=== PATIENT | male | born 1955 | race American Indian/Alaskan Native ===

== ENCOUNTER 2020-05-22 09:44 | Emergency (ER) | payer MEDICARE ==
--- NOTE | 2020-05-22 10:34 | Emergency Department Report ---
ED General Adult HPI - General Chief complaint: Extremity Injury, Lower Stated complaint: RT WRIST LEFT KNEE PAIN Time Seen by Provider: 05/22/20 10:13 Source: patient Mode of arrival: Ambulatory Limitations: No Limitations - History of Present Illness Initial comments: Is a pleasant 64-year-old male presents the emergency department chief complaint of right wrist pain intermittently over the past many weeks and left knee pain intermittently over the past many months. He denies any injuries. He reports the pain will be intermittent and worse swelling his left knee occasionally and then will resolve. He denies any fever, chills, night sweats, tach, dizziness, blurry vision, nausea, vomiting, diarrhea, chest pain, shortness of breath. Pain is described as dull and aching rated as 5-10 in severity. Denies any radiating pain. Reports the pain in his wrist is aggravated by reaching for things and is on the medial side of his wrist described as dull and throbbing with no alleviating factors other than immobility. - Related Data Previous Rx's Medication Instructions Recorded Last Taken Type Naproxen [Naprosyn] 500 mg PO BID #20 tablet 05/22/20 Unknown Rx ED Review of Systems ROS: Stated complaint: RT WRIST LEFT KNEE PAIN Other details as noted in HPI Comment: All other systems reviewed and negative Constitutional: denies: chills, fever Eyes: denies: eye pain, eye discharge, vision change ENT: denies: ear pain, throat pain Respiratory: denies: cough, shortness of breath, wheezing Cardiovascular: denies: chest pain, palpitations Endocrine: no symptoms reported Gastrointestinal: denies: abdominal pain, nausea, diarrhea Genitourinary: denies: urgency, dysuria Musculoskeletal: as per HPI, arthralgia. denies: back pain, joint swelling Skin: denies: rash, lesions Neurological: denies: headache, weakness, paresthesias Psychiatric: denies: anxiety, depression Hematological/Lymphatic: denies: easy bleeding, easy bruising ED Past Medical Hx - Past Medical History Previous Medical History?: No - Surgical History Past Surgical History?: No - Social History Smoking Status: Current Every Day Smoker Substance Use Type: Alcohol - Medications Home Medications: Home Medications Medication Instructions Recorded Confirmed Last Taken Type Naproxen [Naprosyn] 500 mg PO BID #20 tablet 05/22/20 Unknown Rx ED Physical Exam - General Limitations: No Limitations General appearance: alert, in no apparent distress - Head Head exam: Present: atraumatic, normocephalic - Eye Eye exam: Present: normal appearance, PERRL, EOMI Pupils: Present: normal accommodation - ENT ENT exam: Present: normal exam, normal orophraynx, mucous membranes moist - Neck Neck exam: Present: normal inspection, full ROM. Absent: tenderness, meningismus - Respiratory Respiratory exam: Present: normal lung sounds bilaterally. Absent: respiratory distress, wheezes, rales, rhonchi, stridor - Cardiovascular Cardiovascular Exam: Present: regular rate, normal rhythm. Absent: systolic murmur, diastolic murmur, rubs, gallop - GI/Abdominal GI/Abdominal exam: Present: soft, normal bowel sounds. Absent: distended, tenderness, guarding, rebound, rigid - Rectal Rectal exam: Present: deferred - Extremities Exam Extremities exam: Present: normal inspection, full ROM, tenderness (Mild tenderness to the left knee along the joint line. Negative varus valgus strain, negative anterior posterior drawer sign, negative Lockman sign, no posterior calf tenderness, negative Homans sign bilaterally. Ambulatory with a steady gait without any pain. Positive Abiodun test of the right wrist. No anatomical snuffbox tenderness. Full active range of motion without pain.), normal capillary refill. Absent: calf tenderness - Back Exam Back exam: Present: normal inspection, full ROM. Absent: tenderness, CVA tenderness (R), CVA tenderness (L) - Neurological Exam Neurological exam: Present: alert, oriented X3, CN II-XII intact, normal gait - Psychiatric Psychiatric exam: Present: normal affect, normal mood - Skin Skin exam: Present: warm, dry, intact, normal color. Absent: rash ED Medical Decision Making - Medical Decision Making Patient nontoxic in no acute distress. Vital signs are stable. I suspect the pain in the wrist is secondary to good de Quervain's tenosynovitis versus a strain of the wrist. He had no injuries and no snuffbox tenderness and full active range of motion without pain making my suspicion for fracture low at this time. Same with the knee. He had no injury and his symptoms are consistent more with osteoarthritis. His [place] criteria of the left knee was negative and no imaging was needed at this time. I recommended outpatient follow-up with orthopedics and anti-inflammatories for pain. He was instructed to return the emerge part if he develops any change or worsening symptoms. He had a low Wells risk criteria for DVT and no clinical symptoms of DVT making this less likely. Patient verbalized understand the diagnosis, treatment plan and follow-up instructions and all of his questions were answered. - Differential Diagnosis Strain, sprain, fracture Critical care attestation.: If time is entered above; I have spent that time in minutes in the direct care of this critically ill patient, excluding procedure time. ED Disposition Clinical Impression: Right wrist pain Left knee pain Qualifiers: Chronicity: acute Qualified Code(s): M25.562 - Pain in left knee Disposition: DC-01 TO HOME OR SELFCARE Is pt being admited?: No Condition: Stable Instructions: Arthralgia (ED) Prescriptions: Naproxen [Naprosyn] 500 mg PO BID #20 tablet Referrals: ALYSA PHILLIPS MD [Staff Physician] - 3-[address] [facility] [Provider Group] - 3-5 Days Time of Disposition: 10:33
== END 2020-05-22 10:47 | disposition home or self-care (01) ==
LOC: ED 09:44
DX: M25.531 Pain in right wrist (principal); M25.562 Pain in left knee; F17.200 Nicotine dependence, unspecified, uncomplicated; Z79.899 Other long term (current) drug therapy
CPT/HCPCS: 99282

== ENCOUNTER 2020-05-27 10:57 | Emergency (ER) | payer MEDICARE ==
[2020-05-27 11:12] VITALS: BP 135/89
--- NOTE | 2020-05-27 14:37 | Emergency Department Report ---
ED Male HPI - General Chief complaint: Skin Rash Stated complaint: PENILE PAIN Time Seen by Provider: 05/27/20 12:43 Source: patient Mode of arrival: Ambulatory Limitations: No Limitations - History of Present Illness Initial comments: 64-year-old F [place] male presents emergency department complaining of a few years of pain irritation and occasional rash issues and progressively worsening for skin retraction abilities. Reports no testicular pain or swelling no penile discharge no hematuria no fevers, chills, sweats no abdominal pain. Reports no nausea vomiting. MD Complaint: other - Related Data Previous Rx's Medication Instructions Recorded Last Taken Type Naproxen [Naprosyn] 500 mg PO BID #20 tablet 05/22/20 Unknown Rx Ciclopirox 0.77% (Nf) [Loprox 1 applic TP BID #30 tube 05/27/20 Unknown Rx 0.77% (Nf)] Fluconazole [Diflucan TAB] 200 mg PO QDAY #5 tablet 05/27/20 Unknown Rx ED Review of Systems ROS: Stated complaint: PENILE PAIN Other details as noted in HPI Comment: All other systems reviewed and negative ED Past Medical Hx - Past Medical History Previous Medical History?: No - Surgical History Past Surgical History?: Yes Additional Surgical History: hand surgery - Social History Smoking Status: Current Some Day Smoker Substance Use Type: None - Medications Home Medications: Home Medications Medication Instructions Recorded Confirmed Last Taken Type Naproxen [Naprosyn] 500 mg PO BID #20 tablet 05/22/20 Unknown Rx Ciclopirox 0.77% (Nf) [Loprox 1 applic TP BID #30 tube 05/27/20 Unknown Rx 0.77% (Nf)] Fluconazole [Diflucan TAB] 200 mg PO QDAY #5 tablet 05/27/20 Unknown Rx ED Physical Exam - General Limitations: No Limitations General appearance: alert, in no apparent distress - Head Head exam: Present: atraumatic, normocephalic - Eye Eye exam: Present: normal appearance - ENT ENT exam: Present: mucous membranes moist - Neck Neck exam: Present: normal inspection - Respiratory Respiratory exam: Present: normal lung sounds bilaterally. Absent: respiratory distress - Cardiovascular Cardiovascular Exam: Present: regular rate, normal rhythm. Absent: systolic murmur, diastolic murmur, rubs, gallop - GI/Abdominal GI/Abdominal exam: Present: soft, normal bowel sounds - Rectal Rectal exam: Present: deferred - exam: Absent: circumcision (Uncircumcised with evidence of phimosis. No paraphimosis is present. There is a fungal rash to the superficial area of the foreskin involving the glans of the penis. No herpetic lesions no obvious syphilis lesions no penile discharge normal testicles) - Extremities Exam Extremities exam: Present: normal inspection - Back Exam Back exam: Present: normal inspection - Neurological Exam Neurological exam: Present: alert, oriented X3 - Psychiatric Psychiatric exam: Present: normal affect, normal mood - Skin Skin exam: Present: warm, dry, intact, normal color. Absent: rash ED Course Vital Signs 05/27/20 11:07 Temperature 98 F Pulse Rate 72 Respiratory 18 Rate Blood Pressure 135/89 [Right] O2 Sat by Pulse 97 Oximetry Critical care attestation.: If time is entered above; I have spent that time in minutes in the direct care of this critically ill patient, excluding procedure time. ED Disposition Clinical Impression: Phimosis of penis, Balanitis Is pt being admited?: No Does the pt Need Aspirin: No Condition: Stable Instructions: Balanitis (ED), Phimosis (ED) Prescriptions: Fluconazole [Diflucan TAB] 200 mg PO QDAY #5 tablet Ciclopirox 0.77% (Nf) [Loprox 0.77% (Nf)] 1 applic TP BID #30 tube Referrals: [facility] [Provider Group] - 3-5 Days
== END 2020-05-27 14:43 | disposition home or self-care (01) ==
LOC: ED 10:57
DX: N47.1 Phimosis (principal); N48.1 Balanitis; F17.200 Nicotine dependence, unspecified, uncomplicated; Z98.890 Other specified postprocedural states
CPT/HCPCS: 99281

== ENCOUNTER 2020-06-02 09:41 | Emergency (ER) | payer MEDICARE ==
[2020-06-02 09:46] VITALS: BP 140/92
[2020-06-02] MEDS ORDERED: KETOROLAC 30 MG/1 ML INJ IM ONE (11:37)
[2020-06-02] MEDS ORDERED: dexAMETHasone 20 MG/5 ML VIAL IV ONE (11:37)
--- NOTE | 2020-06-02 12:23 | XRay Report ---
LEFT KNEE 4 VIEWS INDICATION / CLINICAL INFORMATION: patellar tenderness, pain, redness COMPARISON: None available. FINDINGS: BONES / JOINT(S): No acute fracture or subluxation. No significant arthritis. SOFT TISSUES: There is soft tissue swelling anterior to the left knee. Atherosclerotic calcifications are noted in the distal superficial femoral artery and popliteal artery. ADDITIONAL FINDINGS: None. Signer Name: Flakito Rose MD Signed: 06/02/2020 12:18 PM Workstation Name: [id number]
--- NOTE | 2020-06-02 13:25 | Emergency Department Report ---
ED General Adult HPI - General Chief complaint: Back Pain/Injury Stated complaint: KNEE/BACK PAIN Time Seen by Provider: 06/02/20 11:25 Source: patient Mode of arrival: Ambulatory Limitations: No Limitations - History of Present Illness Initial comments: 64-year-old -[place] male patient presents with complaints of sudden onset of right knee pain and swelling x3 days. Patient states he has had intermittent pain in his right knee for many months, however this pain is worse than normal now with swelling and redness. He denies any fever/chills/sweats, injuries to the knee, history of gout, penetrating traumas, numbness/tingling/weakness in his leg, or difficulty moving the knee. He rates his pain as a 9/10 in severity and states naproxen is not helping. Patient also complains of diffuse dark spots on his torso for many months that have been there since he had a rash that was itchy and have not gone away. Severity scale (0 -10): 9 - Related Data Previous Rx's Medication Instructions Recorded Last Taken Type Naproxen [Naprosyn] 500 mg PO BID #20 tablet 05/22/20 Unknown Rx Ciclopirox 0.77% (Nf) [Loprox 1 applic TP BID #30 tube 05/27/20 Unknown Rx 0.77% (Nf)] Fluconazole [Diflucan TAB] 200 mg PO QDAY #5 tablet 05/27/20 Unknown Rx Indomethacin 50 mg PO Q8H PRN 7 Days #21 capsule 06/02/20 Unknown Rx Prednisone [predniSONE 10 mg 10 mg PO .TAPER #1 tab.ds.pk 06/02/20 Unknown Rx (6-Day Pack, 21 Tabs)] Allergies Allergy/AdvReac Type Severity Reaction Status Date / Time No Known Allergies Allergy Unverified 06/02/20 09:45 ED Review of Systems ROS: Stated complaint: KNEE/BACK PAIN Other details as noted in HPI Constitutional: denies: chills, diaphoresis, fever, malaise, weakness Eyes: denies: vision change ENT: denies: throat pain Respiratory: denies: cough Cardiovascular: denies: chest pain Endocrine: denies: excessive sweating Gastrointestinal: denies: abdominal pain, nausea, vomiting Genitourinary: denies: urgency, dysuria, frequency, hematuria Skin: denies: pruritus Neurological: denies: numbness, paresthesias, abnormal gait Hematological/Lymphatic: denies: easy bruising, swollen glands ED Past Medical Hx - Past Medical History Previous Medical History?: Yes Hx Arthritis: Yes - Surgical History Past Surgical History?: Yes Additional Surgical History: hand surgery - Social History Smoking Status: Never Smoker Substance Use Type: None - Medications Home Medications: Home Medications Medication Instructions Recorded Confirmed Last Taken Type Naproxen [Naprosyn] 500 mg PO BID #20 tablet 05/22/20 Unknown Rx Ciclopirox 0.77% (Nf) [Loprox 1 applic TP BID #30 tube 05/27/20 Unknown Rx 0.77% (Nf)] Fluconazole [Diflucan TAB] 200 mg PO QDAY #5 tablet 05/27/20 Unknown Rx Indomethacin 50 mg PO Q8H PRN 7 Days #21 capsule 06/02/20 Unknown Rx Prednisone [predniSONE 10 mg 10 mg PO .TAPER #1 tab.ds.pk 06/02/20 Unknown Rx (6-Day Pack, 21 Tabs)] ED Physical Exam - General Limitations: No Limitations General appearance: alert, in no apparent distress - Head Head exam: Present: atraumatic, normocephalic - Eye Eye exam: Present: normal appearance. Absent: scleral icterus - Neck Neck exam: Present: normal inspection - Respiratory Respiratory exam: Present: normal lung sounds bilaterally. Absent: respiratory distress - Cardiovascular Cardiovascular Exam: Present: regular rate, normal rhythm - Extremities Exam Extremities exam: Present: full ROM - Expanded Lower Extremity Exam Left Knee exam: Present: full ROM, tenderness, swelling (Mild anterior), erythema (Mild with warmth noted; redness does not appear to be cellulitic). Absent: abrasion, laceration, ecchymosis, deformity, crepidus Neuro vascular tendon exam: Absent: no vascular compromise - Back Exam Back exam: Present: normal inspection - Neurological Exam Neurological exam: Present: alert, oriented X3, normal gait. Absent: motor sensory deficit - Psychiatric Psychiatric exam: Present: normal affect, normal mood - Skin Skin exam: Present: warm, dry, intact. Absent: rash, cyanosis ED Course Vital Signs 06/02/20 06/02/20 09:45 12:21 Temperature 98.5 F Pulse Rate 76 Respiratory 18 18 Rate Blood Pressure 140/92 O2 Sat by Pulse 97 Oximetry ED Medical Decision Making - Lab Data Result diagrams: 06/02/20 12:15 06/02/20 12:15 Lab Results 06/02/20 06/02/20 Range/Units 12:15 12:15 WBC 4.9 (4.5-11.0) K/mm3 RBC 4.13 (3.65-5.03) M/mm3 Hgb 12.8 (11.8-15.2) gm/dl Hct 38.6 (35.5-45.6) % MCV 93 (84-94) fl MCH 31 (28-32) pg MCHC 33 (32-34) % RDW 14.4 (13.2-15.2) % Plt Count 231 (140-440) K/mm3 Lymph % (Auto) 28.3 (13.4-35.0) % [place] % (Auto) 10.8 H (0.0-7.3) % Eos % (Auto) 6.1 H (0.0-4.3) % Baso % (Auto) 0.5 (0.0-1.8) % Lymph # (Auto) 1.4 (1.2-5.4) K/mm3 [place] # (Auto) 0.5 (0.0-0.8) K/mm3 Eos # (Auto) 0.3 (0.0-0.4) K/mm3 Baso # (Auto) 0.0 (0.0-0.1) K/mm3 Seg Neutrophils % 54.3 (40.0-70.0) % Seg Neutrophils # 2.6 (1.8-7.7) K/mm3 Sodium 140 (137-145) mmol/L Potassium 3.9 (3.6-5.0) mmol/L Chloride 103.7 (98-107) mmol/L Carbon Dioxide 26 (22-30) mmol/L Anion Gap 14 mmol/L BUN 16 (9-20) mg/dL Creatinine 0.7 L (0.8-1.3) mg/dL Estimated GFR > 60 ml/min BUN/Creatinine Ratio 23 % Glucose 122 H (75-100) mg/dL Uric Acid 6.5 (3.5-7.6) mg/dL Calcium 9.4 (8.4-10.2) mg/dL - Radiology Data Radiology results: report reviewed LEFT KNEE 4 VIEWS INDICATION / CLINICAL INFORMATION: patellar tenderness, pain, redness COMPARISON: None available. FINDINGS: BONES / JOINT(S): No acute fracture or subluxation. No significant arthritis. SOFT TISSUES: There is soft tissue swelling anterior to the left knee. Atherosclerotic calcifications are noted in the distal superficial femoral artery and popliteal artery. ADDITIONAL FINDINGS: None. - Medical Decision Making 64-year-old -[place] male patient presents with complaints of sudden onset of right knee pain and swelling x3 days. Patient states he has had intermittent pain in his right knee for many months, however this pain is worse than normal now with swelling and redness. He denies any fever/chills/sweats, injuries to the knee, history of gout, penetrating traumas, numbness/tingling/weakness in his leg, or difficulty moving the knee. He rates his pain as a 9/10 in severity and states naproxen is not helping. On exam, the anterior knee is mildly erythemic without cellulitic changes, warmth, with mild swelling and tenderness to touch. CBC shows normal white count. X-ray shows soft tissue swelling without any acute bony abnormalities. Patient is afebrile and non-tachycardic. Exam and history appear to be consistent with gout. Patient given Toradol and states his pain has significantly improved and he is walking without difficulty. Prescription for indomethacin and prednisone given. Patient recommended to follow-up with orthopedics for further evaluation. He is well-appearing and stable for discharge home. Strict return precautions were discussed in great detail with patient who verbalizes understanding. Critical care attestation.: If time is entered above; I have spent that time in minutes in the direct care of this critically ill patient, excluding procedure time. ED Disposition Clinical Impression: Acute pain of left knee, Swelling of left knee joint Disposition: TO HOME OR SELFCARE Is pt being admited?: No Condition: Stable Instructions: Acute Gouty Arthritis (ED), Knee Pain (ED) Prescriptions: Indomethacin 50 mg PO Q8H PRN 7 Days #21 capsule PRN Reason: pain Prednisone [predniSONE 10 mg (6-Day Pack, 21 Tabs)] 10 mg PO .TAPER #1 tab.ds.pk Referrals: ALYSA PHILLIPS MD [Staff Physician] - 3-5 Days
[2020-06-02 13:31] LABS: Basophils % (Auto) 0.5 % (0.0-1.8); Eosinophils # (Auto) 0.3 K/mm3 (0.0-0.4); Eosinophils % (Auto) 6.1 % (0.0-4.3); Hematocrit 38.6 % (35.5-45.6); Hemoglobin 12.8 gm/dl (11.8-15.2); Lymphocytes # (Auto) 1.4 K/mm3 (1.2-5.4); Lymphocytes % (Auto) 28.3 % (13.4-35.0); Mean Corpuscular HGB Conc 33 % (32-34); Mean Corpuscular Volume 93 fl (84-94); Monocytes # (Auto) 0.5 K/mm3 (0.0-0.8); Monocytes % (Auto) 10.8 % (0.0-7.3); Platelet Count 231 K/mm3 (140-440); Red Blood Count 4.13 M/mm3 (3.65-5.03); Red Cell Distribution Width 14.4 % (13.2-15.2)
[2020-06-02 13:53] LABS: Blood Urea Nitrogen 16 mg/dL (9-20); Calcium 9.4 mg/dL (8.4-10.2); Hemolysis Index 23; Uric Acid 6.5 mg/dL (3.5-7.6)
[2020-06-02 13:54] LABS: BUN/Creatinine Ratio 23
== END 2020-06-02 14:20 | disposition home or self-care (01) ==
LOC: ED 09:41
DX: M25.561 Pain in right knee (principal); R22.41 Localized swelling, mass and lump, right lower limb; M13.88 Other specified arthritis, other site; Z98.890 Other specified postprocedural states; Z79.899 Other long term (current) drug therapy
CPT/HCPCS: 36415; 73564; 80048; 84550; 85025; 96372; 96374; 99284; J1100; J1885